=== PATIENT | male | born 1980 | race Caucasian/White ===

== ENCOUNTER 2019-09-03 17:00 | Emergency (ER) | payer BC ==
[~2019-09-03] VITALS: Ht 172.7 cm; Wt 95.5 kg
[2019-09-03] MEDS ORDERED: normal saline 1000ML IV soln IVB ONE (17:10)
[2019-09-03] MEDS ORDERED: ondansetron/PF 4mg/2ml inj IV ONE (17:10)
[2019-09-03] MEDS ORDERED: ketorolac tromethamine 15mg/ml inj. IV ONE (17:10)
--- NOTE | 2019-09-03 17:29 | NUR ---
medicated with toradol for pain. Pt to CT as ordered.
[2019-09-03] MEDS ORDERED: morphine 4 MG/ML inj SYRINge ONE (17:50)
[2019-09-03] MEDS ORDERED: morphine 4 MG/ML inj SYRINge IV ONE (17:50)
--- NOTE | 2019-09-03 17:58 | NUR ---
medicated with IV pain meds and getting IV Fluids. pt. is getting some immediate pain relief now. VSS.
[2019-09-03 18:07] LABS: BASOPHILS # (AUTO) 0.1 X10'3 (0-0.2); BASOPHILS % (AUTO) 0.4 % (0-1); EOSINOPHILS # (AUTO) 0.1 X10'3 (0-0.9); EOSINOPHILS % (AUTO) 0.5 % (0-6); HEMATOCRIT 46.4 % (42.0-52.0); HEMOGLOBIN 15.7 g/dl (14.0-17.9); LYMPHOCYTES # (AUTO) 1.6 X10'3 (1.1-4.8); LYMPHOCYTES % (AUTO) 10.1 % (21-51); MEAN CORPUSCULAR HEMOGLOBIN 31.5 PG (27.0-31.0); MEAN CORPUSCULAR HGB CONC 33.9 g/dL (33.0-36.5); MEAN CORPUSCULAR VOLUME 93.1 FL (78-98); MEAN PLATELET VOLUME 7.5 FL (7.4-10.4); MONOCYTES # (AUTO) 0.8 X10'3 (0-0.9); MONOCYTES % (AUTO) 5.4 % (2-12); NEUTROPHILS # (AUTO) 13.1 X10'3 (1.8-7.7); NEUTROPHILS % (AUTO) 83.6 % (42-75); PLATELET COUNT 383 X10'3 (140-440); RED BLOOD COUNT 4.98 X10'6 (4.70-6.10); RED CELL DISTRIBUTION WIDTH 13.5 % (11.5-14.5); WHITE BLOOD COUNT 15.6 X10'3 (4.5-11.0)
[2019-09-03 18:20] LABS: ALANINE AMINOTRANSFERASE 31 U/L (12-78); ALBUMIN 4.2 G/DL (3.4-5.0); ALBUMIN/GLOBULIN RATIO 1.2 (1.1-1.5); ALKALINE PHOSPHATASE 67 IU/L (46-116); ANION GAP 9 (8-16); ASPARTATE AMINO TRANSFERASE 15 U/L (10-37); BILIRUBIN,TOTAL 0.5 MG/DL (0.1-1.0); BLOOD UREA NITROGEN 16 MG/DL (7-18); BUN/CREATININE RATIO 12.4 (5.4-32.0); CALCIUM 9.4 MG/DL (8.5-10.1); CHLORIDE 104 MMOL/L (99-107); CREATININE 1.29 MG/DL (0.60-1.10); GLUCOSE 126 MG/DL (70-104); POTASSIUM 3.6 MMOL/L (3.5-5.1); SODIUM 141 MMOL/L (135-145); TOTAL CARBON DIOXIDE 28.5 MMOL/L (24-32); TOTAL PROTEIN 7.8 G/DL (6.4-8.2); eGFR 62 ML/MIN
[2019-09-03 18:45] LABS: CLARITY,URINE CLOUDY (Clear); COLOR,URINE AMBER (Yellow); GLUCOSE, URINE NEGATIVE (Neg); KETONES,URINE NEGATIVE (Neg); LEUKOCYTE ESTERASE ,URINE NEGATIVE (Neg); NITRITES, URINE NEGATIVE (Neg); OCCULT BLOOD,URINE LARGE (Neg); PH,URINE 8.5 (4.8-8.0); PROTEIN,URINE 30 mg/dl (Neg); UROBILINOGEN,URINE 0.2 E.U/dL (0.2-1.0)
[2019-09-03 18:49] LABS: UA COLLECTION TYPE NON-SPECIFIED
[2019-09-03 18:58] LABS: BACTERIA,URINE NONE SEEN /HPF (Neg); RBC,URINE TNTC /HPF (0-2); SQUAMOUS EPITHELIAL CELL,UR NONE SEEN /LPF (FEW); WBC,URINE 0-4 /HPF (0-4)
[2019-09-03 18:59] LABS: AMORPHOUS PHOSPHATES 2+
--- NOTE | 2019-09-03 19:00 | NUR ---
medicated as ordered for pain 11/24
--- NOTE | 2019-09-03 19:11 | NUR ---
Pt states pain is less now that he is medicated. -09/24 now
[2019-09-03] MEDS ORDERED: LEVO500T2 PO (19:48)
[2019-09-03] MEDS ORDERED: IBUP-1985 PO (19:48)
[2019-09-03] MEDS ORDERED: TADA20TA PO (19:48)
[2019-09-03] MEDS ORDERED: HYDR-4353 PO (19:48)
[2019-09-03 20:00] VITALS: BP 153/92
== END 2019-09-03 20:17 | disposition home or self-care (01) ==
LOC: ER 17:01
DX: N20.0 Calculus of kidney (principal); Z88.5 Allergy status to narcotic agent; Z79.899 Other long term (current) drug therapy
CPT/HCPCS: 36415; 74176; 80053; 81001; 85025; 96374; 96375; 96376; 99285; J1885; J2270; J2405; J7030

== ENCOUNTER 2023-12-02 13:37 | Emergency (ER) | payer BC, OTHER ==
[~2023-12-02] VITALS: Ht 172.7 cm; Wt 98.0 kg
[~2023-12-02 13:37] MED LIST: IBUP-1985 PO; TADA20TA PO
[2023-12-02 13:45] VITALS: TEMP 97.5
[2023-12-02] MEDS: normal saline 1000ml 1,000 ML IV ONE (14:09)
[2023-12-02] MEDS ORDERED: LIDOCAINE IV ONE (14:15)
[2023-12-02] MEDS ORDERED: NORMAL SALINE IV ONE (14:15)
[2023-12-02] MEDS: LIDOCAINE IV ONE (14:32)
[2023-12-02] MEDS: WATER IV ONE (14:32)
[2023-12-02] MEDS: DEXTROSE 5% IV ONE (14:32)
[2023-12-02] MEDS ORDERED: HYDR-3965 PO (15:23)
[2023-12-02 15:30] VITALS: BP 116/74; PULSE 67; RESP 13; O2SAT 97
[2023-12-02] MEDS ORDERED: ONDA-243 PO (15:34)
== END 2023-12-02 15:48 | disposition home or self-care (01) ==
LOC: ER 13:37
DX: N20.0 Calculus of kidney (principal); Z88.8 Allergy status to other drugs, medicaments and biological substances; Z79.1 Long term (current) use of non-steroidal anti-inflammatories (NSAID); Z79.899 Other long term (current) drug therapy
CPT/HCPCS: 74176; 96361; 96365; 99285; J3490; J7030; J7060

== ENCOUNTER 2023-12-16 02:31 | Emergency (ER) | payer OTHER ==
[~2023-12-16] VITALS: Ht 172.7 cm; Wt 88.6 kg
[~2023-12-16 02:31] MED LIST changes: +HYDR-3965 PO; +ONDA-243 PO
[2023-12-16] MEDS ORDERED: NAPR-56 PO (03:09)
[2023-12-16] MEDS: morphine 4 MG/ML inj SYRINge IV ONE (03:09)
[2023-12-16] MEDS ORDERED: HYDR-3965 PO (03:09)
[2023-12-16] MEDS ORDERED: FLO0.4C PO (03:09)
[2023-12-16] MEDS: ondansetron/PF 4mg/2ml inj IV ONE (03:09)
[2023-12-16] MEDS: ketorolac trometh 30MG/ML vial 30 MG/ML VIAL IV ONE (03:22)
[2023-12-16 03:39] LABS: BASOPHILS # (AUTO) 0.1 X10'3 (0-0.2); BASOPHILS % (AUTO) 0.4 % (0-1); EOSINOPHILS # (AUTO) 0.1 X10'3 (0-0.9); EOSINOPHILS % (AUTO) 0.9 % (0-6); HEMATOCRIT 44.4 % (42.0-52.0); LYMPHOCYTES # (AUTO) 1.2 X10'3 (1.1-4.8); LYMPHOCYTES % (AUTO) 8.5 % (21-51); MEAN CORPUSCULAR HEMOGLOBIN 29.8 PG (27.0-31.0); MEAN CORPUSCULAR HGB CONC 33.8 g/dL (33.0-36.5); MEAN CORPUSCULAR VOLUME 88.2 FL (78-98); MEAN PLATELET VOLUME 7.9 FL (7.4-10.4); MONOCYTES # (AUTO) 0.8 X10'3 (0-0.9); MONOCYTES % (AUTO) 6.2 % (2-12); NEUTROPHILS # (AUTO) 11.6 X10'3 (1.8-7.7); PLATELET COUNT 346 X10'3 (140-440); RED BLOOD COUNT 5.03 X10'6 (4.70-6.10); RED CELL DISTRIBUTION WIDTH 15.7 % (11.5-14.5); WHITE BLOOD COUNT 13.8 X10'3 (4.5-11.0)
[2023-12-16 03:47] LABS: ALANINE AMINOTRANSFERASE 18 U/L (12-78); ALBUMIN 3.8 G/DL (3.4-5.0); ALKALINE PHOSPHATASE 59 IU/L (46-116); ANION GAP 9 (8-16); ASPARTATE AMINO TRANSFERASE 10 U/L (10-37); BILIRUBIN,TOTAL 0.3 MG/DL (0.1-1.0); BLOOD UREA NITROGEN 15 MG/DL (7-18); BUN/CREATININE RATIO 10.6 (10.0-20.0); CALCIUM 8.9 MG/DL (8.5-10.1); CHLORIDE 104 MMOL/L (99-107); CREATININE 1.42 MG/DL (0.60-1.10); GLUCOSE 122 MG/DL (70-104); POTASSIUM 3.7 MMOL/L (3.5-5.1); SODIUM 144 MMOL/L (135-145); TOTAL CARBON DIOXIDE 30.6 MMOL/L (24-32); TOTAL PROTEIN 7.6 G/DL (6.4-8.2); eCRCL 66 ML/MIN; eGFR 55 ML/MIN
[2023-12-16 03:51] LABS: BILIRUBIN,URINE NEGATIVE (Neg); CLARITY,URINE CLEAR (Clear); COLOR,URINE YELLOW (Yellow); GLUCOSE, URINE NEGATIVE (Neg); KETONES,URINE TRACE mg/dl (Neg); LEUKOCYTE ESTERASE ,URINE NEGATIVE (Neg); NITRITES, URINE NEGATIVE (Neg); OCCULT BLOOD,URINE MODERATE (Neg); PROTEIN,URINE NEGATIVE (Neg); UROBILINOGEN,URINE 0.2 E.U/dL (0.2-1.0)
[2023-12-16 03:57] LABS: URINE AMPHETAMINE SCREEN NEGATIVE (Neg); URINE BARBITUATE SCREEN NEGATIVE (Neg); URINE BENZODIAZEPINES SCREEN NEGATIVE (Neg); URINE CANNABINOID SCREEN POSITIVE (Neg); URINE COCAINE SCREEN NEGATIVE (Neg); URINE METHADONE SCREEN NEGATIVE (Neg); URINE OPIATE SCREEN POSITIVE (Neg); URINE PHENCYCLIDINE SCREEN NEGATIVE (Neg)
[2023-12-16 04:00] LABS: UA COLLECTION TYPE NON-SPECIFIED
[2023-12-16 04:01] LABS: RBC,URINE 0-2 /HPF (0-2); SQUAMOUS EPITHELIAL CELL,UR FEW /LPF (FEW); WBC,URINE 0-4 /HPF (0-4)
[2023-12-16 04:02] LABS: BACTERIA,URINE FEW /HPF (Neg)
--- NOTE | 2023-12-16 04:48 | NUR ---
PT HAS BEEN UP TO THE BATHROOM WITHOUT ASSIST X6 FOR BOWEL MOVEMENTS. PT STATES " I WAS RECENTLY DIAGNOSED WITH ULCERATIVE COLITIS."
[2023-12-16 05:39] VITALS: BP 154/96; PULSE 67; RESP 18; TEMP 98; O2SAT 99
== END 2023-12-16 05:38 | disposition home or self-care (01) ==
LOC: ER 02:32
DX: N20.0 Calculus of kidney (principal); Z88.8 Allergy status to other drugs, medicaments and biological substances; Z79.1 Long term (current) use of non-steroidal anti-inflammatories (NSAID); Z79.899 Other long term (current) drug therapy
CPT/HCPCS: 36415; 80053; 80305; 81001; 85025; 96374; 96375; 99284; J1885; J2270; J2405; J7030

== ENCOUNTER 2024-05-23 23:12 | Emergency (ER) | payer OTHER ==
[~2024-05-23] VITALS: Ht 170.2 cm; Wt 98.0 kg
[~2024-05-23 23:12] MED LIST changes: -HYDR-3965 PO
[2024-05-23 23:23] VITALS: BP 189/104; PULSE 73; O2SAT 99
[2024-05-23] MEDS: ketorolac trometh 30MG/ML vial 30 MG/ML VIAL IV ONE (23:37)
[2024-05-23] MEDS: ondansetron/PF 4mg/2ml inj IM ONE (23:37)
[2024-05-23 23:58] LABS: BASOPHILS # (AUTO) 0.1 X10'3 (0-0.2); BASOPHILS % (AUTO) 0.5 % (0-1); EOSINOPHILS # (AUTO) 0.1 X10'3 (0-0.9); EOSINOPHILS % (AUTO) 0.6 % (0-6); HEMATOCRIT 42.3 % (42.0-52.0); HEMOGLOBIN 14.7 g/dl (14.0-17.9); LYMPHOCYTES # (AUTO) 1.4 X10'3 (1.1-4.8); MEAN CORPUSCULAR HEMOGLOBIN 30.7 PG (27.0-31.0); MEAN CORPUSCULAR HGB CONC 34.8 g/dL (33.0-36.5); MEAN PLATELET VOLUME 7.3 FL (7.4-10.4); MONOCYTES % (AUTO) 7.6 % (2-12); NEUTROPHILS # (AUTO) 10.5 X10'3 (1.8-7.7); NEUTROPHILS % (AUTO) 80.3 % (42-75); PLATELET COUNT 354 X10'3 (140-440); RED BLOOD COUNT 4.81 X10'6 (4.70-6.10); WHITE BLOOD COUNT 13.1 X10'3 (4.5-11.0)
[2024-05-24 00:11] LABS: ALANINE AMINOTRANSFERASE 19 U/L (12-78); ALBUMIN 4.1 G/DL (3.4-5.0); ALBUMIN/GLOBULIN RATIO 1.1 (1.1-1.5); ALKALINE PHOSPHATASE 70 IU/L (46-116); ANION GAP 3 (8-16); ASPARTATE AMINO TRANSFERASE 9 U/L (10-37); BILIRUBIN,TOTAL 0.3 MG/DL (0.1-1.0); BLOOD UREA NITROGEN 15 MG/DL (7-18); BUN/CREATININE RATIO 13.8 (10.0-20.0); CHLORIDE 102 MMOL/L (99-107); CREATININE 1.09 MG/DL (0.60-1.10); GLUCOSE 129 MG/DL (70-104); POTASSIUM 3.6 MMOL/L (3.5-5.1); SODIUM 140 MMOL/L (135-145); TOTAL CARBON DIOXIDE 34.8 MMOL/L (24-32); TOTAL PROTEIN 7.9 G/DL (6.4-8.2); eCRCL 82 ML/MIN; eGFR 74 ML/MIN
[2024-05-24] MEDS: morphine 4 MG/ML inj SYRINge IV STA (00:17)
[2024-05-24] MEDS: ondansetron/PF 4mg/2ml inj IV STA (00:17)
[2024-05-24] MEDS: normal saline 1000ml 1,000 ML IV STA (00:29)
[2024-05-24 01:02] VITALS: RESP 16
[2024-05-24] MEDS: HYDROmorphone/PF 0.2 MG/ML SYRINGE IV STA (01:02)
[2024-05-24] MEDS ORDERED: ONDA-243 PO (01:20)
[2024-05-24] MEDS ORDERED: OXYC-150 PO (01:20)
[2024-05-24] MEDS ORDERED: FLO0.4C PO (01:25)
[2024-05-24 01:37] VITALS: TEMP 98.6
[2024-05-24] MEDS: OXYcodone (OXYCONTIN) Ext Release 15 MG TAB.SR.12H PO STA (01:51)
[2024-05-24] MEDS: tamsulosin 0.4mg capsule PO STA (01:51)
== END 2024-05-24 01:57 | disposition home or self-care (01) ==
LOC: ER 23:13
DX: N20.0 Calculus of kidney (principal); Z88.5 Allergy status to narcotic agent; Z79.1 Long term (current) use of non-steroidal anti-inflammatories (NSAID); Z79.899 Other long term (current) drug therapy
CPT/HCPCS: 36415; 74176; 80053; 85025; 96361; 96372; 96374; 96375; 99285; J1171; J1885; J2270; J2405; J7030